=== PATIENT | female | born 2000 | race Caucasian/White ===

== ENCOUNTER 2021-12-27 11:43 | Inpatient (IN) | payer BC ==
[2021-12-27] MEDS ORDERED: CARBOPROST TROMETHAMINE 250 MCG/ML 1 ML AMP IM PRN (12:33)
[2021-12-27] MEDS ORDERED: OXYTOCIN 10 UNIT/ML 1 ML VIAL IM PRN (12:33)
[2021-12-27] MEDS ORDERED: METHYLERGONOVINE 0.2 MG/ML 1 ML AMP IM PRN (12:33)
[2021-12-27] MEDS ORDERED: TERBUTALINE 1 MG/ML VIAL SQ PRN (12:33)
[2021-12-27] MEDS ORDERED: LIDOCAINE 0.5% (PF) 5 MG/ML (50 ML SDV) SQ PRN (12:33)
[2021-12-27] MEDS ORDERED: OXYTOCIN 30 UNITS/500 ML NS 30 UNIT in SALINE 1 500ML.BAG IV SCH (12:45)
[2021-12-27] MEDS: LACTATED RINGERS 1,000 ML IV SCH ×2 (12:50→21:00)
[2021-12-27 13:09] LABS: Basophils % (A) 0 %; Eosinophils # (A) 0.2 k/uL (0-0.7); Eosinophils % (A) 1 %; HCT 39.3 % (34.0-46.0); HGB 12.7 gm/dL (11.4-16.0); Lymphocytes # (A) 1.6 k/uL (1.0-4.8); Lymphocytes % (A) 14 %; MCH 28.5 pg (25.0-35.0); MCHC 32.3 g/dL (31.0-37.0); MCV 88.3 fL (80.0-100.0); Mean Platelet Volume 8.3; Monocytes # (A) 0.6 k/uL (0-1.0); Monocytes % (A) 5 %; Neutrophils % (A) 78 %; Platelet Count 208 k/uL (150-450); RBC 4.45 m/uL (3.80-5.40); WBC 11.6 k/uL (3.8-10.6)
[2021-12-27 13:19] LABS: Creatinine,Urine Random 110.2 mg/dL; Protein/Creatinine Ratio,Urine 0.2
[2021-12-27 13:20] LABS: ALT 15 U/L (4-34); African American GFR (CKD) >90 (>60 ml/min/1.73 sqM); Blood Urea Nitrogen 13 mg/dL (7-17); Non-African American GFR(CKD) >90 (>60 ml/min/1.73 sqM); Uric Acid 5.1 mg/dL (3.7-7.4)
--- NOTE | 2021-12-27 13:21 | P.HPOB ---
History of Present Illness H&P Date: 12/27/21 Chief Complaint: 40-5/7 weeks, spontaneous rupture of membranes The patient is a 21-year-old 1 para 0 admitted at 40-5/7 weeks as established by early ultrasound. She is admitted with documented spontaneous rupture of membranes and some contractions though not painful at this time. heart rate tracing is category 1. Her has been entirely uncomplicated. She has had testing on weekly basis since 32 weeks secondary to having had Covid during the . Group B strep status is negative. Obstetrical history: 1 para 0 with current statistics listed in history of present illness. EDC of 12/22/2021 was established by early ultrasound. Laboratory workup demonstrates a blood type of A+ with a negative antibody screen. Rubella status is immune. The remainder of laboratory workup was within normal limits. One hour Glucola was normal and group B strep status is negative. Gynecologic history: Unremarkable with no history of any infections to include STDs. Review of Systems Review of systems is confined to history of present illness. Past Medical History Past Medical History: No Reported History History of Any Multi-Drug Resistant Organisms: None Reported Past Surgical History: No Surgical Hx Reported Past Anesthesia/Blood Transfusion Reactions: Unable to Obtain Past Psychological History: No Psychological Hx Reported Smoking Status: Never smoker Past Alcohol Use History: None Reported Past Drug Use History: None Reported - Past Family History Mother History Unknown: Yes Family Medical History: Seizure Disorder Medications and Allergies Home Medications Medication Instructions Recorded Confirmed Type Aspirin [Children's Aspirin] 81 mg PO DAILY 12/27/21 12/27/21 History Vit No.179/Iron/Folic 1 tab PO DAILY 12/27/21 12/27/21 History [ Tablet] Allergies Allergy/AdvReac Type Severity Reaction Status Date / Time No Known Allergies Allergy Verified 12/27/21 11:53 Exam Vital Signs Temp Pulse Resp BP Pulse Ox 12/27/21 13:00 98.1 F 131 H 17 138/94 98 Intake and Output 12/26/21 12/27/21 12/27/21 22:59 06:59 14:59 Other: Weight 107.048 kg In general, this is a well-developed, well-nourished white female in no acute distress. Her heart has a regular rhythm and rate without murmur. Her lungs clear to auscultation bilaterally in all hankins. Her abdomen is gravid, nondistended, has normal active bowel sounds, is soft, nontender, and without any palpable masses aside from the uterine fundus. Her extremities are without any cyanosis, clubbing, or significant edema and are nontender to palpation bilaterally. Digital cervical examination performed by the nursing staff demonstrates her cervix to be 1 cm dilated, thick, with the vertex in presentation at -2-3 station. Results Result Diagrams: 12/27/21 12:45 Abnormal Lab Results - Last 24 Hours (Table) 12/27/21 Range/Units 12:45 WBC 11.6 H (3.8-10.6) k/uL Neutrophils # 9.0 H (1.3-7.7) k/uL Assessment and Plan (1) Spontaneous rupture of amniotic membranes Current Visit: Yes Status: Acute Code(s): DRM3720 - SNOMED Code(s): 361477049 (2) Post-dates Current Visit: Yes Status: Acute Code(s): O48.0 - POST-TERM SNOMED Code(s): 36613050 Plan: As the patient did have some elevated blood pressures in triage, labs for preeclampsia have been ordered and, thus far, are negative. We will start Pitocin augmentation shortly. She will have close maternal and surveillance and expectant management will be practiced. She is a good candidate for either IV or epidural analgesia, whichever she may choose.
[2021-12-27 13:23] LABS: INR 0.8 (<1.2); Partial Thromboplastin Time 23.7 sec (22.0-30.0); Prothrombin Time 9.5 sec (9.0-12.0)
[2021-12-27 13:28] LABS: Amorphous Sediment,Urine Few /hpf; Appearance,Urine Cloudy (Clear); Bilirubin,Urine Negative (Negative); Blood,Urine Negative (Negative); Color,Urine Yellow; Glucose,Urine (UA) Negative (Negative); Ketones,Urine Negative (Negative); Leukocyte Esterase,Urine Negative (Negative); Mucus,Urine Rare /hpf; Nitrite,Urine Negative (Negative); Protein,Urine Trace (Negative); RBC,Urine 17 /hpf (0-5); Specific Gravity,Urine 1.019 (1.001-1.035); Squamous Epithelial Cell,Urine 7 /hpf (0-4); Urobilinogen,Urine <2.0 mg/dL (<2.0); WBC,Urine 4 /hpf (0-5)
[2021-12-27 13:32] LABS: AST 27 U/L (14-36)
[2021-12-27 13:33] LABS: LDH 546 U/L (313-618)
[2021-12-27] MEDS: LABETALOL 5 MG/ML VIAL MDV IVP STA (15:30)
[2021-12-27] MEDS ORDERED: LABETALOL 5 MG/ML VIAL MDV IVP STA (23:16)
[2021-12-28] MEDS ORDERED: PENICILLIN G POTASSIUM 5,000,000 UNIT in DEXTROSE 5% IN WATER 100 ML IVPB STA ×2
[2021-12-28] MEDS: BUTORPHANOL 1 MG/ML 1 ML VIAL IV PRN ×2 (02:49→04:54)
[2021-12-28] MEDS: PENICILLIN G POTASSIUM 2,500,000 UNIT in DEXTROSE 5% IN WATER 100 ML IVPB SCH ×6 (04:00→15:36)
[2021-12-28] MEDS: LACTATED RINGERS 1,000 ML IV SCH ×3 (04:55→16:08)
[2021-12-28] MEDS ORDERED: LABETALOL 5 MG/ML VIAL MDV IVP STA (07:12)
[2021-12-28] MEDS: LABETALOL 5 MG/ML VIAL MDV IVP STA (09:31)
[2021-12-28] MEDS ORDERED: CITRIC ACID-SODIUM CITRATE 15 ML CUP PO ONE (09:49)
[2021-12-28] MEDS ORDERED: MORPHINE SULFATE (PF) 0.3 MG/0.3 ML SYR ONE (10:39)
[2021-12-28] MEDS ORDERED: ONDANSETRON 4 MG/2 ML VIAL ONE (10:39)
[2021-12-28] MEDS ORDERED: KETOROLAC 30 MG/ML 1 ML VIAL ONE (10:39)
[2021-12-28] MEDS ORDERED: NALBUPHINE 10 MG/ML (1 ML AMP) ONE (10:39)
[2021-12-28] MEDS ORDERED: OXYTOCIN 30 UNITS/500 ML NS BAG IV ONE (10:39)
[2021-12-28] MEDS ORDERED: SIMETHICONE 80 MG CHEWABLE PO PRN (11:44)
[2021-12-28] MEDS ORDERED: ONDANSETRON 4 MG/2 ML VIAL IVP PRN (11:44)
[2021-12-28] MEDS ORDERED: KETOROLAC 15 MG/ML 1 ML VIAL IVP PRN (11:44)
[2021-12-28] MEDS ORDERED: NALOXONE 0.4 MG/ML 1 ML VIAL IV PRN (11:44)
[2021-12-28] MEDS ORDERED: diphenhydrAMINE 25 MG CAP PO PRN (11:44)
[2021-12-28] MEDS ORDERED: diphenhydrAMINE 50 MG/ML 1 ML VIAL IVP PRN ×2 (11:44)
[2021-12-28] MEDS ORDERED: LANOLIN CREAM 5 GM TUBE TOPICAL PRN (11:44)
[2021-12-28] MEDS ORDERED: diphenhydrAMINE 50 MG CAP PO PRN (11:44)
[2021-12-28] MEDS ORDERED: ZOLPIDEM 5 MG TAB PO PRN (11:44)
[2021-12-28] MEDS ORDERED: METOCLOPRAMIDE 5 MG/ML 2 ML VIAL IVP PRN (11:44)
[2021-12-28] MEDS ORDERED: OXYTOCIN 30 UNITS/500 ML NS 30 UNIT in SALINE 1 500ML.BAG IV SCH (11:45)
--- NOTE | 2021-12-28 11:54 | P.OP ---
Date of Procedure: 12/28/21 Preoperative Diagnosis: #1. 40-6/7 weeks, spontaneous rupture of membranes, labor #2. Arrest of dilation and descent Postoperative Diagnosis: Same plus #3. occiput transverse Procedure(s) Performed: #1. Primary low-transverse section Anesthesia: spinal Surgeon: Norberto Hui Shipping Packer #1: Haydee Swanson Estimated Blood Loss (ml): 500 IV fluids (ml): 900 Urine output (ml): 500 Pathology: other (Placenta, for prolonged rupture of membranes) Condition: stable Disposition: floor Operative Findings: Preoperatively, the patient had presented with an unfavorable cervix with spontaneous rupture of membranes. Pitocin augmentation was started immediately. She made very slow progress in the latent phase and had antibiotic prophylaxis started at approximately 12 hours of rupture and 37 m of dilation. Through the night she made change to 5 cm and then, this morning was found to be 7 cm and, at that time, I felt the head was not engaged in the pelvis and there was a significant amount of caput forming. She continued labor over the next 2 hours but made no significant change of any kind and no descent of the head. After discussion, the patient requested to proceed with primary low- transverse section, particularly because the fetus was thought to be significantly large with growth found at the 93rd percentile at 35 weeks. She was taken the operating room where she was delivered of a viable 9 lbs. 12 oz. baby boy with Apgars of 8 at 1 minute and 9 at 5 minutes delivered in the right occiput posterior position. The placenta was delivered manually, intact, and grossly normal with a grossly normal three-vessel cord. The uterus, tubes, and ovaries were entirely normal to inspection. Description of Procedure: The patient was prepped and draped in usual fashion after spinal anesthesia was administered by the anesthesiologist. A Pfannenstiel incision was made and extended into the abdominal cavity without difficulty. The bladder peritoneum was significant distal to the intended site of incision and was left intact. A 2 cm incision was made in the transverse segment of the lower uterine segment to enter the uterus. The incision was extended in both directions using bandage scissors. The head was delivered up and through the incision and was noted to not be well engaged in the pelvis the time of delivery. The nose and mouth were thoroughly suctioned. The remainder of the infant was delivered onto the field where the cord was doubly clamped, cut, and the passed for resuscitative measures with weight and Apgars as noted above. The placenta was delivered manually, intact, and grossly normal with a grossly normal three- vessel cord. The uterus was exteriorized and the interior cavity uterus swept of any remaining placental or membranous fragments. The margins of the uterine incision were grasped with Mejía clamps and the uterus closed in 2 layers. The first layer was a running locking stitch of 0 chromic catgut followed by a running imbricating stitch of 0 chromic catgut. The posterior cul-de-sac was suctioned with a guard followed by laparotomy sponge. The uterus tubes and ovaries were normal as noted above. The uterus was replaced within the abdominal cavity and there was a site of bleeding noted in the mid right portion of the incision which could not be controlled with cautery. Single [id number] stitch of 0 chromic catgut was placed and led to excellent hemostasis. There was no other points of bleeding noted. The gutters were swept of any remaining blood, fluid, or clot. The parietal peritoneum was loosely reapproximated in the layer of muscles examined and made hemostatic with the Bovie. The fascia was closed with 2 running stitches of 0 Vicryl proceeding from the lateral margins to the midpoint. The subcutaneous tissues were irrigated, made hemostatic with the Bovie, and reapproximated with a running stitch of 30 plain catgut. The skin was reapproximated with a running subcuticular stitch of 4-0 Vicryl followed by half-inch Steri-Strips placed with Mastisol. Estimated blood loss for the case was approximate 500 mL. There were no complications. All sponge, instrument, and needle counts were correct. The patient tolerated the procedure well and proceeded to the recovery room in stable condition. Both mother and infant are resting comfortably in recovery.
[2021-12-28] MEDS: ACETAMINOPHEN TAB 500 MG TAB PO SCH ×2 (13:54→20:33)
[2021-12-28] MEDS: IBUPROFEN 600 MG TAB PO SCH ×2 (19:19→22:37)
[2021-12-28] MEDS: SENNOSIDES-DOCUSATE SODIUM 1 EACH TAB PO SCH (22:06)
[2021-12-29] MEDS: ACETAMINOPHEN TAB 500 MG TAB PO SCH ×4 (01:29→20:09)
[2021-12-29] MEDS: IBUPROFEN 600 MG TAB PO SCH ×3 (04:00→18:26)
[2021-12-29] MEDS: SENNOSIDES-DOCUSATE SODIUM 1 EACH TAB PO SCH ×2 (07:47→20:09)
--- NOTE | 2021-12-29 07:52 | P.PN ---
Progress Note - Text Progress Note Date: 12/29/21 Patient doing well. Ambulating w/o paresthesia or weakness. Denies headache or pruritis. Pain well controlled. Spinal site clean and dry. POD#1 s/p w/ spinal - continue current regimen
[2021-12-29 07:55] LABS: Basophils % (A) 0 %; Eosinophils # (A) 0.1 k/uL (0-0.7); Eosinophils % (A) 1 %; HCT 29.9 % (34.0-46.0); Lymphocytes # (A) 2.3 k/uL (1.0-4.8); Lymphocytes % (A) 19 %; MCH 29.3 pg (25.0-35.0); MCHC 32.8 g/dL (31.0-37.0); MCV 89.4 fL (80.0-100.0); Mean Platelet Volume 8.2; Monocytes # (A) 0.8 k/uL (0-1.0); Monocytes % (A) 6 %; Neutrophils # (A) 8.3 k/uL (1.3-7.7); Neutrophils % (A) 70 %; Platelet Count 155 k/uL (150-450); RBC 3.34 m/uL (3.80-5.40); RDW 14.7 % (11.5-15.5); WBC 11.9 k/uL (3.8-10.6)
[2021-12-29 07:56] LABS: HGB 9.8 gm/dL (11.4-16.0)
--- NOTE | 2021-12-29 11:04 | P.PNOBGPC ---
Subjective - Subjective Patient reports: Reports appetite normal, Reports voiding normally, Reports pain well controlled, Reports ambulating normally : doing well, nursing well Objective - Vital Signs Latest vital signs: Vital Signs Temp Pulse Resp BP Pulse Ox 12/29/21 08:00 98.1 F 95 18 104/66 100 12/29/21 04:00 98 F 74 17 120/80 100 12/28/21 23:46 98.6 F 98 18 130/72 96 12/28/21 20:00 98.2 F 80 18 132/71 99 12/28/21 16:00 98.1 F 106 H 18 125/73 97 12/28/21 13:35 96.8 F L 92 18 134/88 97 12/28/21 13:05 88 18 120/62 97 12/28/21 12:35 101 H 18 138/65 97 12/28/21 12:20 96.8 F L 101 H 18 142/81 97 12/28/21 12:05 100 18 110/57 97 12/28/21 12:00 102 H 18 118/55 97 12/28/21 11:50 102 H 18 110/57 97 12/28/21 11:35 96.6 F L 99 18 101/52 97 Intake and Output 12/28/21 12/29/21 12/29/21 22:59 06:59 14:59 Output Total 500 Balance -500 Output: Urine 500 Uretheral (Pritchett) 200 Other: Voiding Method Indwelling Catheter # Voids 1 - Exam Extremities: Present: normal, edema (Primarily pedal bilaterally.) Abdomen: Present: normal appearance, soft. Absent: distention, tenderness Incision: Present: normal, dry, intact Uterus: Present: normal, firm (The uterine fundus is tonic and minimally tender just below the umbilicus.) - Labs Labs: Abnormal Lab Results - Last 24 Hours (Table) 12/29/21 Range/Units 07:25 WBC 11.9 H (3.8-10.6) k/uL RBC 3.34 L (3.80-5.40) m/uL Hgb 9.8 L D (11.4-16.0) gm/dL Hct 29.9 L (34.0-46.0) % Neutrophils # 8.3 H (1.3-7.7) k/uL Assessment and Plan (1) Spontaneous rupture of amniotic membranes Current Visit: Yes Status: Acute Code(s): HTS2758 - SNOMED Code(s): 074046133 (2) Post-dates Current Visit: Yes Status: Acute Code(s): O48.0 - POST-TERM SNOMED Code(s): 59028400 (3) S/P section Current Visit: Yes Status: Acute Code(s): Z98.891 - HISTORY OF UTERINE SCAR FROM PREVIOUS SURGERY SNOMED Code(s): 185658413 Plan: Continue routine and postoperative care. I would anticipate discharge home tomorrow pending complications. i have encouraged the patient and the hallways routinely.
[2021-12-29 20:14] VITALS: RESP 16
[2021-12-30] MEDS: IBUPROFEN 600 MG TAB PO SCH ×3 (00:04→14:04)
[2021-12-30 00:24] VITALS: TEMP 97.7
[2021-12-30] MEDS: ACETAMINOPHEN TAB 500 MG TAB PO SCH ×2 (04:07→11:10)
[2021-12-30] MEDS: SENNOSIDES-DOCUSATE SODIUM 1 EACH TAB PO SCH (08:00)
--- NOTE | 2021-12-30 08:20 | P.DS ---
Providers Date of admission: 12/27/21 12:16 Expected date of discharge: 12/30/21 Attending physician: Kasandra Aguilar Primary care physician: Stated None - Discharge Diagnosis(es) (1) Arrest of descent, delivered, current hospitalization Current Visit: Yes Status: Acute (2) Arrest of dilation, delivered, current hospitalization Current Visit: Yes Status: Acute (3) macrosomia in Current Visit: Yes Status: Acute (4) malposition, delivered, current hospitalization Current Visit: Yes Status: Acute (5) Post-dates Current Visit: Yes Status: Acute (6) Prolonged rupture of membranes Current Visit: Yes Status: Acute (7) S/P section Current Visit: Yes Status: Acute (8) Spontaneous rupture of amniotic membranes Current Visit: Yes Status: Acute Hospital Course: This is a 21-year-old 1 now para 1 that was admitted to labor and delivery on 12/27 at 40-5/7 weeks for spontaneous rupture of membranes. Patient was admitted to labor and delivery. Renal care has been uncomplicated. Patient did undergo testing secondary to Flash infection during the . Group beta strep culture was negative. Patient was begun on Pitocin for augmentation of labor, patient made slow progress through the day/night. By the next morning patient was noted to be 7 cm with significant At formation and no descent of the head. At that point the patient and physician made a decision for primary secondary to arrest of descent and dilation. Patient was taken back for primary . For full details on the please see the operative report. Patient delivered a liveborn male, weight of 9 lbs. 12 oz. Patient has done well post operatively. On this postoperative day #2 she is ambulating and voiding without difficulty. She is tolerating a regular diet without nausea or vomiting. She is breast-feeding with some difficulty. She states her pain is controlled with oral ibuprofen and Tylenol. She denies concerns and would like discharge home today. Patient Condition at Discharge: Good Plan - Discharge Summary New Discharge Prescriptions: No Action Aspirin [Children's Aspirin] 81 mg PO DAILY Vit No.179/Iron/Folic [ Tablet] 1 tab PO DAILY Discharge Medication List Aspirin [Children's Aspirin] 81 mg PO DAILY 12/27/21 [History] Vit No.179/Iron/Folic [ Tablet] 1 tab PO DAILY 12/27/21 [History] Follow up Appointment(s)/Referral(s): Kasandra Aguilar DO [Doctor of Osteopathic Medicine] - 2 Weeks Patient Instructions/Handouts: (DC), (GEN) Activity/Diet/Wound Care/Special Instructions: Patient can expect menstrual-like bleeding post . Bleeding precautions are given to patient. Patient is to follow-up in 2 weeks for routine postoperative check. Should patient have any concerns prior to this appointment she is asked to call the office. [id number] ibuprofen as needed for pain alternating with Tylenol. Discharge Disposition: HOME SELF-CARE
[2021-12-30 08:26] VITALS: BP 134/86; PULSE 82
== END 2021-12-30 16:00 | disposition home or self-care (01) | DRG 788 ==
LOC: FBPOP 11:43 → 4FBP 12:16
PROVIDERS: ADMIT Obstetrics & Gynecology; ATTEND Obstetrics & Gynecology Obstetrics
PROC: 10D00Z1 Extraction of Products of Conception, Low, Open Approach (ICD-10-PCS; principal; 2021-12-28 10:39)
DX: O42.92 Full-term premature rupture of membranes, unspecified as to length of time between rupture and onset of labor (principal); O62.0 Primary inadequate contractions; O62.1 Secondary uterine inertia; O48.0 Post-term pregnancy; O36.63X0 Maternal care for excessive fetal growth, third trimester, not applicable or unspecified; O64.0XX0 Obstructed labor due to incomplete rotation of fetal head, not applicable or unspecified; O75.89 Other specified complications of labor and delivery; R03.0 Elevated blood-pressure reading, without diagnosis of hypertension; Z3A.40 40 weeks gestation of pregnancy; Z37.0 Single live birth; Z86.16 Personal history of COVID-19; Z79.82 Long term (current) use of aspirin; Z82.0 Family history of epilepsy and other diseases of the nervous system; Z28.311 Partially vaccinated for COVID-19
CPT/HCPCS: 59025; 81001; 82565; 82570; 83615; 84112; 84156; 84450; 84460; 84520; 84550; 85025; 85384; 85610; 85730; 86850; 86900; 86901; 88307; 99213